=== PATIENT | female | born 1980 | race Caucasian/White ===

== ENCOUNTER 2018-12-01 14:50 | Outpatient (CLI) | payer BC, MEDICAID ==
--- NOTE | 2018-12-01 15:32 | Non Stress Test Report ---
Non Stress Test Datetime Report Generated by CPN: 12/01/2018 15:32 DEMOGRAPHIC EGA NST: 35.0 INDICATION Indication for Study: Ordered by Provider VITAL SIGNS Temperature - NST: 98.0 Pulse - NST: 94 RESP - NST: 18 NBPSYS NST: 143 NBPDIA NST: 78 MONITORING Monitor Explained: Monitor Explained; Test Explained; Patient Verbalized Understanding Time on Monitor: 12/01/2018 14:59 NST INTERVENTIONS NST Interventions: None Physician Notified NST: K. Mejia, CNM BABY A: [id number] BABY A Movement : Present Contraction Frequency : none FHR Baseline : 145 Accelerations : 15X15 Decelerations : None Variability : Moderate 6-25bpm NST Review: Meets Criteria for Reactive NST NST Review and Verified By : Yan NST Results: Reactive NST REPORT Report Trigger: Send Report
== END 2018-12-01 15:33 | disposition home or self-care (01) ==
LOC: LC 14:50
PROVIDERS: ATTEND Obstetrics & Gynecology
PROC: 4A1HXCZ Monitoring of Products of Conception, Cardiac Rate, External Approach (ICD-10-PCS; principal; 2018-12-01)
DX: O09.523 Supervision of elderly multigravida, third trimester (principal); Z3A.35 35 weeks gestation of pregnancy

== ENCOUNTER 2018-12-11 14:53 | Outpatient (CLI) | payer BC, MEDICAID ==
--- NOTE | 2018-12-11 16:00 | Non Stress Test Report ---
Non Stress Test Datetime Report Generated by CPN: 12/11/2018 16:00 DEMOGRAPHIC EGA NST: 36.3 INDICATION Indication for Study: Ordered by Provider MONITORING Monitor Explained: Monitor Explained; Test Explained; Patient Verbalized Understanding Time on Monitor: 12/11/2018 15:04 Time off Monitor: 12/11/2018 15:30 NST Duration: 26 NST INTERVENTIONS NST Interventions: PO Hydration Physician Notified NST: Dr. Graham BABY A: [id number] BABY A Movement : Present Contraction Frequency : none FHR Baseline : 135 Accelerations : 15X15 Decelerations : None Variability : Moderate 6-25bpm NST Review: Meets Criteria for Reactive NST NST Review and Verified By : ANDREA Olguin Results: Reactive NST REPORT Report Trigger: Send Report
== END 2018-12-11 15:35 | disposition home or self-care (01) ==
LOC: LC 14:53
PROVIDERS: ATTEND Obstetrics & Gynecology Gynecology
PROC: 4A1HXCZ Monitoring of Products of Conception, Cardiac Rate, External Approach (ICD-10-PCS; principal; 2018-12-11)
DX: O09.523 Supervision of elderly multigravida, third trimester (principal); Z3A.36 36 weeks gestation of pregnancy
CPT/HCPCS: 59025

== ENCOUNTER 2018-12-16 16:39 | Outpatient (CLI) | payer BC, MEDICAID ==
[2018-12-16 17:19] LABS: APPEARANCE,URINE SLIGHTLY-CLOUDY; BILIRUBIN,URINE NEGATIVE (NEGATIVE); COLOR,URINE STRAW; GLUCOSE, URINE NEGATIVE (NEGATIVE); KETONES,URINE NEGATIVE (NEGATIVE); LEUKOCYTE ESTERASE,URINE TRACE (NEGATIVE); NITRITE,URINE NEGATIVE (NEGATIVE); PROTEIN,URINE NEGATIVE (NEGATIVE); URINE SPECIFIC GRAVITY 1.003; UROBILINOGEN,URINE NEGATIVE mg/dL (<2.0)
[2018-12-16 17:36] LABS: URINE AMPHETAMINES SCREEN NEGATIVE; URINE BARBITURATES SCREEN NEGATIVE; URINE BENZODIAZEPINES SCREEN NEGATIVE; URINE COCAINE SCREEN NEGATIVE; URINE MARIJUANA (THC) SCREEN NEGATIVE; URINE METHADONE SCREEN NEGATIVE; URINE PHENCYCLIDINE SCREEN NEGATIVE
[2018-12-16 17:40] LABS: UR PRO/CREAT RATIO RESULT 0.7 mg/mg (0.0-0.2); URINE CREATININE 22.7 mg/dL (16-327); URINE PROTEIN 16.1 mg/dL (<12)
--- NOTE | 2018-12-16 17:41 | Non Stress Test Report ---
Non Stress Test Datetime Report Generated by CPN: 12/16/2018 17:40 DEMOGRAPHIC EGA NST: 37.1 INDICATION Indication for Study: Other Indication for Study (NST) Other: preeclampsia workup, sent from office MONITORING Monitor Explained: Monitor Explained; Test Explained; Patient Verbalized Understanding Time on Monitor: 12/16/2018 16:54 Time off Monitor: 12/16/2018 17:37 NST Duration: 43 NST INTERVENTIONS NST Interventions: PO Hydration Physician Notified NST: Dr Zeus BABY A: [id number] BABY A Movement : Present Contraction Frequency : irregular FHR Baseline : 130 Accelerations : 15X15 Decelerations : None Variability : Moderate 6-25bpm NST Review: Meets Criteria for Reactive NST NST Review and Verified By : Kaylynn Camp rnc NST Results: Reactive NST REPORT Report Trigger: Send Report
[2018-12-16 17:49] LABS: ABSOLUTE EOSINOPHILS # (AUTO) 0.1 10^3/uL (0.0-0.6); ABSOLUTE LYMPHOCYTES (AUTO) 2.9 10^3/uL (0.5-4.7); ABSOLUTE MONOCYTES (AUTO) 0.7 10^3/uL (0.1-1.4); ABSOLUTE NEUT (AUTO) 6.1 10^3/uL (1.7-8.2); BASOPHILS % (AUTO) 0.3 % (0-2); EOSINOPHILS % (AUTO) 0.6 % (0-6); HEMATOCRIT 40.7 % (36.0-47.0); HEMOGLOBIN 13.6 g/dL (12.0-15.5); LYMPHOCYTES % (AUTO) 29.7 % (13-45); MEAN CORPUSCULAR HEMOGLOBIN 29.3 pg (27.0-33.4); MEAN CORPUSCULAR HGB CONC 33.3 g/dL (32.0-36.0); MEAN CORPUSCULAR VOLUME 88 fl (80-97); MONOCYTES % (AUTO) 6.8 % (3-13); PLATELET COUNT 217 10^3/uL (150-450); RED BLOOD COUNT 4.63 10^6/uL (3.72-5.28); RED CELL DISTRIBUTION WIDTH 15.4 % (11.5-14.0); SEGMENTED NEUTROPHILS % (AUTO) 62.6 % (42-78); TOTAL CELLS COUNTED % (AUTO) 100 %; WHITE BLOOD COUNT 9.7 10^3/uL (4.0-10.5)
[2018-12-16 18:09] LABS: ALANINE AMINOTRANSFERASE 14 U/L (9-52); ALBUMIN 3.6 g/dL (3.5-5.0); ALKALINE PHOSPHATASE 117 U/L (38-126); ANION GAP 9 (5-19); ASPARTATE AMINO TRANSFERASE 18 U/L (14-36); BILIRUBIN,DIRECT 0.2 mg/dL (0.0-0.4); BILIRUBIN,TOTAL 0.5 mg/dL (0.2-1.3); BLOOD UREA NITROGEN 10 mg/dL (7-20); CALCIUM 9.7 mg/dL (8.4-10.2); CARBON DIOXIDE 21 mmol/L (22-30); CHLORIDE 105 mmol/L (98-107); POTASSIUM 4.3 mmol/L (3.6-5.0); SODIUM 135.1 mmol/L (137-145); TOTAL PROTEIN 6.7 g/dL (6.3-8.2); URIC ACID 4.6 mg/dL (2.5-7.0)
[2018-12-16 18:16] LABS: GLUCOSE 64 mg/dL (75-110)
== END 2018-12-16 18:38 | disposition home or self-care (01) ==
LOC: LC 16:39
PROVIDERS: ATTEND Obstetrics & Gynecology
PROC: 4A1HXCZ Monitoring of Products of Conception, Cardiac Rate, External Approach (ICD-10-PCS; principal; 2018-12-16)
DX: O14.93 Unspecified pre-eclampsia, third trimester (principal); Z3A.37 37 weeks gestation of pregnancy
CPT/HCPCS: 36415; 59025; 80053; 80307; 81001; 82570; 83615; 84156; 84550; 85025

== ENCOUNTER 2018-12-19 09:35 | Outpatient (CLI) | payer BC, MEDICAID ==
--- NOTE | 2018-12-19 10:47 | Non Stress Test Report ---
Non Stress Test Datetime Report Generated by CPN: 12/19/2018 10:47 DEMOGRAPHIC Test Number: 4 EGA NST: 37.4 INDICATION Indication for Study: Ordered by Provider Indication for Study (NST) Other: adv maternal age VITAL SIGNS Temperature - NST: 98.4 Pulse - NST: 87 RESP - NST: 18 NBPSYS NST: 130 NBPDIA NST: 83 MONITORING Monitor Explained: Monitor Explained; Test Explained; Patient Verbalized Understanding Time on Monitor: 12/19/2018 09:53 Time off Monitor: 12/19/2018 10:32 NST Duration: 39 NST INTERVENTIONS NST Interventions: PO Hydration BABY A: [id number] BABY A Movement : Present Contraction Frequency : 0 Accelerations : 15X15 Decelerations : None Variability : Moderate 6-25bpm NST Review: Meets Criteria for Reactive NST NST Review and Verified By : SAutry NST Results: Reactive NST REPORT Report Trigger: Send Report
== END 2018-12-19 10:40 | disposition home or self-care (01) ==
LOC: LC 09:35
PROVIDERS: ATTEND Obstetrics & Gynecology Gynecology
PROC: 4A1HXCZ Monitoring of Products of Conception, Cardiac Rate, External Approach (ICD-10-PCS; principal; 2018-12-19)
DX: O09.523 Supervision of elderly multigravida, third trimester (principal); Z3A.37 37 weeks gestation of pregnancy
CPT/HCPCS: 59025

== ENCOUNTER 2019-01-02 16:11 | Inpatient (IN) | payer BC, MEDICAID ==
[2019-01-02] MEDS ORDERED: OXYTOCIN/NORMAL SALINE 20 UNIT/1,000 ML RTUINJ IV PRN ×2 (16:54→21:19)
[2019-01-02] MEDS ORDERED: RINGERS SOLUTION,LACTATED 300 ML IV ONE (16:54)
[2019-01-02] MEDS ORDERED: LIDOCAINE 1% INJ-PF (10 MG/ML) 30 ML SDV ONE (17:28)
[2019-01-02] MEDS ORDERED: MISOPROSTOL 0.2 MG TABLET ONE (17:28)
[2019-01-02] MEDS ORDERED: OXYTOCIN/NORMAL SALINE 20 UNIT/1,000 ML RTUINJ ONE (17:28)
[2019-01-02] MEDS ORDERED: OXYTOCIN 10 UNIT/ML VIAL ONE (17:28)
[2019-01-02 17:36] LABS: ABSOLUTE BASOPHILS # (AUTO) 0.1 10^3/uL (0.0-0.2); ABSOLUTE EOSINOPHILS # (AUTO) 0.1 10^3/uL (0.0-0.6); ABSOLUTE LYMPHOCYTES (AUTO) 2.3 10^3/uL (0.5-4.7); ABSOLUTE MONOCYTES (AUTO) 0.6 10^3/uL (0.1-1.4); ABSOLUTE NEUT (AUTO) 7.1 10^3/uL (1.7-8.2); BASOPHILS % (AUTO) 1.2 % (0-2); EOSINOPHILS % (AUTO) 0.6 % (0-6); HEMATOCRIT 40.9 % (36.0-47.0); MEAN CORPUSCULAR HGB CONC 34.2 g/dL (32.0-36.0); MEAN CORPUSCULAR VOLUME 88 fl (80-97); MONOCYTES % (AUTO) 5.8 % (3-13); PLATELET COUNT 208 10^3/uL (150-450); RED BLOOD COUNT 4.66 10^6/uL (3.72-5.28); RED CELL DISTRIBUTION WIDTH 15.6 % (11.5-14.0); SEGMENTED NEUTROPHILS % (AUTO) 69.4 % (42-78); TOTAL CELLS COUNTED % (AUTO) 100 %; WHITE BLOOD COUNT 10.2 10^3/uL (4.0-10.5)
[2019-01-02] MEDS: RINGERS SOLUTION,LACTATED 1,000 ML IV PRN ×2 (18:13→21:57)
[2019-01-02] MEDS ORDERED: BENZOCAINE/MENTHOL AEROSOL SPRAY 56 ML TOP PRN (21:19)
[2019-01-02] MEDS ORDERED: DIPH/PERTUSS(ACELL)/TETANUS VAC/PF 0.5 ML SYR (>=10YO) IM PRN (21:19)
[2019-01-02] MEDS ORDERED: ACETAMINOPHEN WITH CODEINE #3 TABLET PO PRN ×2 (21:19)
[2019-01-02] MEDS ORDERED: ZOLPIDEM TARTRATE 5 MG TABLET PO PRN (21:19)
[2019-01-02] MEDS ORDERED: DIBUCAINE 1% OINTMENT 56 GM TP PRN (21:19)
[2019-01-02] MEDS ORDERED: IBUPROFEN 800 MG TABLET ONE (21:54)
[2019-01-02] MEDS: IBUPROFEN 800 MG TABLET PO SCH (21:56)
[2019-01-03] MEDS: IBUPROFEN 800 MG TABLET PO SCH ×3 (05:14→22:38)
[2019-01-03 07:34] LABS: HEMATOCRIT 39.6 % (36.0-47.0); HEMOGLOBIN 13.3 g/dL (12.0-15.5); MEAN CORPUSCULAR HEMOGLOBIN 29.8 pg (27.0-33.4); MEAN CORPUSCULAR HGB CONC 33.5 g/dL (32.0-36.0); MEAN CORPUSCULAR VOLUME 89 fl (80-97); PLATELET COUNT 161 10^3/uL (150-450); RED BLOOD COUNT 4.46 10^6/uL (3.72-5.28); RED CELL DISTRIBUTION WIDTH 16.2 % (11.5-14.0); WHITE BLOOD COUNT 10.6 10^3/uL (4.0-10.5)
[2019-01-03 08:23] VITALS: BP 128/77
[2019-01-03] MEDS: SENNOSIDES/DOCUSATE 8.6-50 MG 1 EACH TABLET PO SCH (09:12)
[2019-01-03] MEDS: PRENATAL VITAMIN W DHA CAPSULE PO SCH (09:12)
[2019-01-03] MEDS: ENOXAPARIN SODIUM INJ 40 MG/0.4 ML DISP.SYRIN SUBCUT SCH (09:12)
[2019-01-03] MEDS: DOCUSATE SODIUM 100 MG CAPSULE PO SCH ×2 (09:12→17:16)
[2019-01-03] MEDS: FERROUS SULFATE 325 MG TABLET PO SCH ×2 (09:12→17:16)
--- NOTE | 2019-01-03 09:51 | PDOC PROGRESS REPORT ---
Subjective-OB Progress Note for:: 01/03/19 Subjective: Doing well, holding baby, breast feeding, no c/o, scant lochia Physical Exam (OB) Vital Signs: Temp Pulse Resp BP Pulse Ox 97.9 F 82 16 128/77 H 99 01/03/19 07:56 01/03/19 07:56 01/03/19 07:56 01/03/19 07:56 01/03/19 07:56 Intake & Output 01/02/19 01/03/19 01/04/19 06:59 06:59 06:59 Intake Total 348 Balance 348 Weight 104.3 kg - PIH/Pre-Eclampsia DTR's: 1 + Clonus: Negative Headache: Absent Epigastric Pain: No Visual Changes: No - Lochia Lochia Amount: Scant < 10 ml Lochia Color: Rubra/Red - Abdomen Description: Soft, Round Hernia Present: No Fundal Description: Firm, Midline Fundal Height: u/u - u/2 Objective-Diagnostic Laboratory: 01/03/19 06:54 01/02/19 01/02/19 01/03/19 17:24 17:24 06:54 WBC 10.2 10.6 H RBC 4.66 4.46 Hgb 14.0 13.3 Hct 40.9 39.6 MCV 88 89 MCH 30.0 29.8 MCHC 34.2 33.5 RDW 15.6 H 16.2 H Plt Count 208 161 Seg Neutrophils % 69.4 Lymphocytes % 23.0 Monocytes % 5.8 Eosinophils % 0.6 Basophils % 1.2 Absolute Neutrophils 7.1 Absolute Lymphocytes 2.3 Absolute Monocytes 0.6 Absolute Eosinophils 0.1 Absolute Basophils 0.1 Blood Type A POSITIVE Antibody Screen NEGATIVE Assessment and Plan(PN) - Assessment and Plan (1) Gestational hypertension Qualifiers: Trimester: second trimester Qualified Code(s): O13.2 - Gestational [-induced] hypertension without significant proteinuria, second trimester Is this a current diagnosis for this admission?: Yes (2) Advanced maternal age (AMA) in Is this a current diagnosis for this admission?: Yes (3) Oligohydramnios Qualifiers: Fetus number: single or unspecified fetus Is this a current diagnosis for this admission?: Yes (4) History of deep venous thrombosis Is this a current diagnosis for this admission?: Yes (5) Vaginal delivery Is this a current diagnosis for this admission?: Yes - Time Spent with Patient Time with patient: Less than 15 minutes Medications reviewed and adjusted accordingly: Yes - Disposition Anticipated Discharge: Home Within: within 24 hours
[2019-01-04] MEDS: IBUPROFEN 800 MG TABLET PO SCH (05:35)
--- NOTE | 2019-01-04 08:55 | PDOC PROGRESS REPORT ---
Subjective-OB Progress Note for:: 01/04/19 Subjective: Doing well, no c/o, tired, hsb at [facility], ready to go home, scant lochia Physical Exam (OB) Vital Signs: Temp Pulse Resp BP Pulse Ox 97.9 F 82 16 128/77 H 99 01/03/19 07:56 01/03/19 07:56 01/03/19 07:56 01/03/19 07:56 01/03/19 07:56 Intake & Output 01/03/19 01/04/19 01/05/19 06:59 06:59 06:59 Intake Total 348 Balance 348 Weight 104.3 kg - PIH/Pre-Eclampsia DTR's: 1 + Clonus: Negative Headache: Absent Epigastric Pain: No Visual Changes: No - Lochia Lochia Amount: Scant < 10 ml Lochia Color: Rubra/Red - Abdomen Description: Soft, Round Hernia Present: No Fundal Description: Firm, Midline Fundal Height: u/u - u/2 Objective-Diagnostic Laboratory: 01/03/19 06:54 Assessment and Plan(PN) - Assessment and Plan (1) Gestational hypertension Qualifiers: Trimester: second trimester Qualified Code(s): O13.2 - Gestational [-induced] hypertension without significant proteinuria, second trimester Is this a current diagnosis for this admission?: Yes (2) Advanced maternal age (AMA) in Is this a current diagnosis for this admission?: Yes (3) Oligohydramnios Qualifiers: Fetus number: single or unspecified fetus Is this a current diagnosis for this admission?: Yes (4) History of deep venous thrombosis Is this a current diagnosis for this admission?: Yes (5) Vaginal delivery Is this a current diagnosis for this admission?: Yes - Time Spent with Patient Time with patient: Less than 15 minutes Medications reviewed and adjusted accordingly: Yes - Disposition Anticipated Discharge: Home Within: within 24 hours
--- NOTE | 2019-01-04 08:59 | PDOC DISCHARGE SUMMARY ---
Final Diagnosis Discharge Date: 01/04/19 - Final Diagnosis (1) Gestational hypertension Is this a current diagnosis for this admission?: Yes (2) Advanced maternal age (AMA) in Is this a current diagnosis for this admission?: Yes (3) Oligohydramnios Is this a current diagnosis for this admission?: Yes (4) History of deep venous thrombosis Is this a current diagnosis for this admission?: Yes (5) Vaginal delivery Is this a current diagnosis for this admission?: Yes Discharge Data - Discharge Medication Home Medications: Pnv W-O Ca No5/Fe Fumarate/FA [-U Multiple Vitamin Capsule] 1 cap PO DAILY 01/13/13 Enoxaparin Sodium [Lovenox Inj 40 mg/0.4 ml Disp.syrin] 40 mg SUBCUT DAILY 01/15/13 Enoxaparin Sodium [Lovenox Inj 40 mg/0.4 ml Disp.syrin] 40 mg SUBCUT DAILY disp.syrin 01/04/19 Gestational Age: 39.4 Reason(s) for Admission: Induction of Labor Admission Note: IUGR, Oligo Procedures: NST, Ultrasound Intrapartum Procedure(s): Spontaneous Vaginal Delivery - Data Baby 1 Male Home with Mother: Yes Complications: No - Diagnosis Test Laboratory: Temp Pulse Resp BP Pulse Ox 97.9 F 82 16 128/77 H 99 01/03/19 07:56 01/03/19 07:56 01/03/19 07:56 01/03/19 07:56 01/03/19 07:56 01/02/19 01/03/19 17:24 06:54 RBC 4.66 4.46 Hgb 14.0 13.3 Hct 40.9 39.6 - Discharge information/Instructions Discharge Activity: Activity As Tolerated, No Lifting Over 10 Pounds, No Lifting/Push/Pulling, Pelvic Rest Discharge Diet: As Tolerated, Regular Disposition: HOME, SELF-CARE Follow up with: [facility] in: 1, Weeks
[2019-01-04] MEDS: DOCUSATE SODIUM 100 MG CAPSULE PO SCH (10:30)
[2019-01-04] MEDS: SENNOSIDES/DOCUSATE 8.6-50 MG 1 EACH TABLET PO SCH (10:30)
[2019-01-04] MEDS: FERROUS SULFATE 325 MG TABLET PO SCH (10:31)
[2019-01-04] MEDS: PRENATAL VITAMIN W DHA CAPSULE PO SCH (10:31)
[2019-01-04] MEDS: ENOXAPARIN SODIUM INJ 40 MG/0.4 ML DISP.SYRIN SUBCUT SCH (10:31)
--- NOTE | 2019-01-05 14:20 | Delivery Summary ---
Del Sum A-C Datetime Report Generated by CPN: 01/05/2019 14:20 DELIVERY PERSONNEL DELIVERY PERSONNEL: [id number] Delivery Doctor:: Magalie Becerril MD Labor and Delivery Nurse:: Iker Gonzalez RNkicking machine operator Nurse:: Frandy Chaudhry RN Labor and Delivery Nurse:: Frandy Chaudhry RN Nursery Nurse:: Lianna Petersen RN Nursery Nurse:: Sana Box RN Nursery Nurse:: Leti Graham RN Nursery Nurse:: Lianna Petersen RN Power And Recovery Supervisor/MICROWAVE TECHNICIAN: Alexandra Roupe ST Power And Recovery Supervisor/MICROWAVE TECHNICIAN: geriatric nurse alex Additional Personnel: : Estefany Box RN MATERNAL INFORMATION Delivery Anesthesia: None Medications After Delivery: Pitocin Drip 20 Units/1000ml NSS Meds After Delivery Comment: 20 units pitocin after placenta delivery Estimated Blood Loss (ml): 50 Maternal Complications: Precipitous Labor (<3hrs); Other Maternal Complications: Precipitous Labor (<3hrs); Other Complication Details: oligohydraminios Provider Comments: of a viable male at 2101 w/ an MARTHA w/ nuchal cord x 1 presentation; APGARS 5, 9; no lacs LABOR SUMMARY EDC: 01/05/2019 00:00 No. Babies in Womb: 1 Attempted: No Labor Anesthesia: None LABOR INFORMATION Reason for Induction: Intrauterine Growth Retardation; Oligohydramnios Complete Dilatation: 01/02/2019 20:53 Oxytocin: Induction Group B Beta Strep: Negative Steroids Given: None Reason Steroids Not Administered: Not Applicable MEMBRANES Membranes Rupture Method: Artificial Membranes Rupture Method: Artificial Rupture of Membranes: 01/02/2019 20:55 Length of Rupture (hr): 0.10 Amniotic Fluid Color: Clear Amniotic Fluid Color: Clear Amniotic Fluid Amount: Scant STAGES OF LABOR Stage 2 hr: 0 Stage 2 min: 8 Stage 3 hr: 0 Stage 3 min: 5 VAGINAL DELIVERY Episiotomy: None Laceration #1: None Laceration Extension #1: N/A Laceration Repair: Not Applicable Sponge Count Correct: Yes Sharps Count Correct: Yes CSECTION DELIVERY Primary Indication: N/A Secondary Indication: N/A CSection Urgency: n/a CSection Incidence: n/a Labor: n/a Elective: n/a BABY A INFORMATION Infant Delivery Date/Time: 01/02/2019 21:01 Method of Delivery: Vaginal Method of Delivery: Vaginal Born in Route : No : N/A Forceps: N/A Vacuum Extraction: N/A Shoulder Dystocia : Yes PRESENTATION/POSITION BABY A Presentation: Cephalic Cephalic Presentation: Vertex Vertex Position: Right Occipital Anterior Breech Presentation: N/A PLACENTA INFORMATION BABY A Placenta Delivery Time : 01/02/2019 21:06 Placenta Method of Delivery: Spontaneous Placenta Status: Delivered SCORES BABY A Heart Rate 1 min: >100 bpm Resp Effort 1 min: Good Cry Reflex Irritability 1 min: Grimace Muscle Tone 1 min: Flaccid Color 1 min: Blue/Pale Resuscitation Effort 1 min: Tactile Stimulation SCORE 1 MIN: 5 Heart Rate 5 min: >100 bpm Resp Effort 5 min: Good Cry Reflex Irritability 5 min: Cough or Sneeze or Pulls Away Muscle Tone 5 min: Active Motion Color 5 min: Body [place], Extremities Blue SCORE 5 MIN: 9 INFANT INFORMATION BABY A Gestational Age at Delivery: 39.4 Gestational Status: Full Term- 39- 40.6 Weeks Infant Outcome : Liveborn Infant Condition : Stable Infant Sex: Male Sex: Male IDENTIFICATION BABY A Infant Verification Date/Time: 01/02/2019 21:13 ID Band Number: [id number] Mother's Name Verified: Yes RN Verifying : R. Richa RN/ Iker McQuay WEIGHT/LENGTH BABY A Infant Birthweight (gm): 2699 Infant Weight (lb): 5 Infant Weight (oz): 15 Infant Length (in): 19.00 Infant Length (cm): 48.26 CORD INFORMATION BABY A No. Cord Vessels: 3 Nuchal Cord : Around Neck x1, Loose Cord Blood Taken: Yes-For Storage (Mom's Blood type +) Suction: Mouth ASSESSMENT BABY A Complications: Extended Bradycardia; Other Infant Complications- Other: Terminal Meconium Physical Findings at Delivery: Other Physical Findings- Other: see nursery notes Skin to Skin: Yes Skin to Skin: Yes Skin to Skin Time (min): 64 Skin to Skin Time (min): 64 Oven Laborer/ALS Called : No BABY B INFORMATION : N/A SIGNATURES Signature: with User ID: [email or web address]
--- NOTE | 2019-01-05 14:32 | Admission Physical ---
Datetime Report Generated by CPN: 01/05/2019 14:31 CURRENT ADMISSION Hx Assessment: The History has been Reviewed and is Current Chief Complaint Other: Decreae TODD/FM Indication for Induction: Oligohydramnios Admit Impression : Term, Intrauterine Admit Plan: Admit to Unit; Initiate Labor Induction Protocol ALLERGIES Medication Allergies: No Medication Allergies: No Known Allergies (12/19/2018) Medication Allergies: No Known Allergies (12/16/2018) Medication Allergies: No Known Allergies (12/11/2018) Medication Allergies: No Known Allergies (12/01/2018) Medication Allergies: No Known Allergies (11/25/2015) Latex: Unknown Food Allergies: none Environmental Allergies: none OBSTETRICAL HISTORY EDC: 01/05/2019 00:00 : 4 Para: 3 Term: 3 Livin Gestational Diabetes: No Rh Sensitization: No Incompetent Cervix: No PUJA: No Infertility: No ART Treatment: No Uterine Anomaly: No IUGR: No Hx Previous C/S: No Macrosomia: No Hx Loss/Stillborn: No PIH: No Hx : No Placenta Previa/Abruption: No Depression/PP Depression: No PTL/PROM: No Post Hemorrhage: No Current Procedures: Ultrasound; NST Obstetrical History Comments: G1 - May 2010 baby girl , forcep assisted delivery G2 - January 2013 baby boy , no complications G3 - September 2015 baby girl , no complications G4 - current , GHTN, lovenox SEE RECORDS Alcohol: No Marijuana : No Cocaine: No Other Illicit Drugs: No Cigarettes: Never Smoker. [id number] MEDICAL HISTORY Diabetes: No Blood Transfusion: No Pulmonary Disease (Asthma, TB): No Breast Disease: No Hypertension: No Finishing Area Supervisor Surgery: No Heart Disease: No Hosp/Surgery: Yes Autoimmune Disorder: No Anesthetic Complications: No Kidney Disease: No Abnormal Pap Smear: No Neuro/Epilepsy: No Psychiatric Disorders: No Other Medical Diseases: No Hepatitis/Liver Disease: No Significant Family History: No Varicosities/Phlebitis: No Trauma/Violence : No Thyroid Dysfunction: No Medical History Comments: 2008 DVT, took heparin for a year, lovenox during INFECTIOUS HISTORY Gonorrhea: No Genital Herpes: No Chlamydia: No Tuberculosis: No Syphilis: No Hepatitis: No HIV/AIDS Exposure: No Rash or Viral Illness: No HPV: No PHYSICAL EXAM General: Normal HEENT: Deferred Neurologic: Normal Thyroid: Normal Heart: Normal Lungs: Normal Breast: Deferred Back: Normal Abdomen: Normal Genitourinary Exam: Normal Extremities: Normal DTRs: Normal Pelvic Type: Adequate Physical Exam Comments: AMA Hx DVT/Lovenox 40 sq qd, last dose 1845 01-01-19 Hx rapid deliveries GHTN TODD = 3.4, S/D 1.1 Obesity GBS Neg Vital Signs: Reviewed FETUS A Monitoring: External US Decelerations: None FHR Category: Category I Admit Comment: Sent from office for Oligohydramnios, Taking Lovenox 40, last dose last night at 1845 pt aware, POC discussed with pt and family and she is aware Dr. Rodriguez aware of admission and orders given Plans to be up and moving during labor does not want a epidural, will place MICKY hose andSCD's if she is not up and moving , fast deliveries PLANS FOR LABOR AND DELIVERY Labor and Delivery: None Pain Management: Natural Feeding Preference: Breast Benefit of Breast Feed Discussed: Yes Circumcision: No INFORMED CONSENT Assignment: Magalie Becerril MD Signature: with User ID: Steve : with User ID: [email or web address]
== END 2019-01-04 11:27 | disposition home or self-care (01) | DRG 806 ==
LOC: LR 16:11 → 2S 22:50
PROVIDERS: ADMIT Obstetrics & Gynecology; ATTEND Obstetrics & Gynecology
PROC: 10E0XZZ Delivery of Products of Conception, External Approach (ICD-10-PCS; principal; 2019-01-02)
DX: O36.5930 Maternal care for other known or suspected poor fetal growth, third trimester, not applicable or unspecified (principal); O41.03X0 Oligohydramnios, third trimester, not applicable or unspecified; Z37.0 Single live birth; O76 Abnormality in fetal heart rate and rhythm complicating labor and delivery; O69.81X0 Labor and delivery complicated by cord around neck, without compression, not applicable or unspecified; O62.3 Precipitate labor; O99.214 Obesity complicating childbirth; O13.4 Gestational [pregnancy-induced] hypertension without significant proteinuria, complicating childbirth; E66.9 Obesity, unspecified; Z3A.39 39 weeks gestation of pregnancy; Z86.718 Personal history of other venous thrombosis and embolism; Z79.02 Long term (current) use of antithrombotics/antiplatelets
CPT/HCPCS: 36415; 84112; 85025; 85027; 86592; 86850; 86900; 86901; 88307; 94760; J1650; J2590; J3490